=== PATIENT | female | born 1990 | race Caucasian/White ===

== ENCOUNTER 2024-11-05 08:19 | Outpatient (CLI) | payer BC, SELFPAY ==
--- NOTE | ~2024-11-05 | US_ITS ---
EXAMINATION: US pelvic complete w TV DATE: 11/05/2024 08:03 INDICATION: Dysmenorrhea, unspecified. TECHNIQUE: Multiple transabdominal and transvaginal sonographic images of the pelvis were obtained. COMPARISON: None. FINDINGS: TRANSABDOMINAL ULTRASOUND: The uterus measures 8.4 x 5.8 x 4.5 cm. There is physiologic free fluid in the pelvis. TRANSVAGINAL ULTRASOUND: The endometrial complex measures 11 mm in thickness. The right ovary measures 2.7 x 1.9 x 2.7 cm. The left ovary measures 3.1 x 2.0 x 2.0 cm. There is normal vascular flow in the ovaries. IMPRESSION: 1. Normal pelvis. Reviewed, dictated and finalized at location [] [employer]PERATOR IMPRESSION: 1. Normal pelvis.
== END 2024-11-05 08:20 | disposition home or self-care (01) ==
LOC: GOSHIMG 08:20
PROVIDERS: PCP Student in an Organized Health Care Education/Training Program; Visit Provider Student in an Organized Health Care Education/Training Program
DX: N94.6 Dysmenorrhea, unspecified (principal)
CPT/HCPCS: 76830; 76856